=== PATIENT | female | born 1985 | race Caucasian/White ===

== ENCOUNTER 2019-10-09 09:42 | Inpatient (IN) ==
[2019-10-09] MEDS ORDERED: Famotidine 20 MG/2 ML VIAL IVP PRN (09:57)
[2019-10-09] MEDS ORDERED: Metoclopramide 10 MG/2 ML VIAL IVP PRN (09:57)
[2019-10-09] MEDS ORDERED: *HR* FentaNYL (PF) 100 MCG/2 ML VIAL IVP PRN (09:57)
[2019-10-09] MEDS ORDERED: Ondansetron 4 MG/2 ML VIAL IVP PRN (09:57)
[2019-10-09] MEDS ORDERED: Naloxone 0.4 MG/ML INJ IVP PRN (09:57)
[2019-10-09] MEDS ORDERED: Lidocaine 1% 20 ML MDV INFILT PRN (09:57)
[2019-10-09] MEDS ORDERED: Azithromycin 500 MG in 0.9 % Sodium Chloride 250 ML IVPB ONE (09:57)
[2019-10-09] MEDS ORDERED: Oxytocin 20 units/ LR 1000 mL 20 UNIT/1,000 ML BAG IVC SCH ×2 (10:00→18:07)
[2019-10-09] MEDS: Ringers Solution, Lactated 1,000 ML IVC SCH ×2 (11:04→14:56)
[2019-10-09 11:22] LABS: Basophils % 0.2 %; Eosinophils # 0.1 K/mcL (0.0-0.6); Eosinophils % 0.9 %; Hematocrit 38.8 % (35.3-44.9); Immature Granulocytes % 0.3 % (0-4); Lymphocytes # 2.1 K/mcL (0.6-4.6); Lymphocytes % 23.6 %; Mean Corpuscular HGB Conc 33.5 g/dL (31.6-35.5); Mean Corpuscular Hemoglobin 31.2 pg (28.0-33.3); Mean Platelet Volume 10.7 fL (9.4-12.4); Monocytes # 0.7 K/mcL (0.0-1.3); Monocytes % 7.8 %; Neutrophils # 5.9 K/mcL (1.6-8.9); Platelet Count 203 K/mcL (140-400); Red Blood Count 4.17 M/mcL (3.82-4.97); Red Cell Distribution Width 13.5 % (11.5-14.5); Segmented Neutrophils % 67.2 %; White Blood Count 8.9 K/mcL (4.3-11.1)
[2019-10-09 11:33] LABS: Amphetamine Screen,Urine Negative ng/mL (Cutoff=1000); Barbiturate Screen,Urine Negative ng/mL (Cutoff=200); Benzodiazepines Screen,Urine Negative ng/mL (Cutoff=200); Cannabinoid Screen,Urine Negative ng/mL (Cutoff = 50); Cocaine Screen,Urine Negative ng/mL (Cutoff= 300); Opiate Screen,Urine Negative ng/mL (Cutoff=300); Phencyclidine Screen,Urine Negative ng/mL (Cutoff=25)
[2019-10-09] MEDS ORDERED: EPHEDrine 50 MG/ML VIAL IVP PRN (13:00)
[2019-10-09] MEDS ORDERED: Epidural Premix (fent/bupiv) 110 ML EP SCH (13:00)
[2019-10-09] MEDS ORDERED: Ropivacaine/PF 0.2% 20 ML VIAL EP ONE (13:00)
[2019-10-09] MEDS ORDERED: *HR* FentaNYL (PF) 100 MCG/2 ML VIAL EP ONE (13:00)
[2019-10-09] MEDS ORDERED: Ropivacaine/PF 0.2% 20 ML VIAL ONE (13:07)
[2019-10-09] MEDS ORDERED: *HR* FentaNYL (PF) 100 MCG/2 ML VIAL ONE (13:07)
[2019-10-09] MEDS ORDERED: Silver Nitrate Applicator 1 STICK..EA. TP ONE (16:31)
[2019-10-09] MEDS ORDERED: Ibuprofen 600 MG TABLET PO PRN (18:07)
[2019-10-09] MEDS ORDERED: Rho Immune Globulin 1,500 UNIT SYRINGE IM PRN (18:07)
[2019-10-09] MEDS ORDERED: Measles/Mumps/Rubella Vacc 0.5 ML VIAL SQ PRN (18:07)
[2019-10-09] MEDS ORDERED: Ringers Solution, Lactated 1,000 ML ONE (20:43)
[2019-10-10] MEDS: Acetaminophen 325 MG TABLET PO PRN ×2 (02:19→14:08)
[2019-10-10 07:37] LABS: Basophils % 0.3 %; Eosinophils # 0.1 K/mcL (0.0-0.6); Eosinophils % 1.1 %; Hematocrit 36.2 % (35.3-44.9); Hemoglobin 11.9 g/dL (11.5-15.4); Immature Granulocytes % 0.5 % (0-4); Lymphocytes # 2.5 K/mcL (0.6-4.6); Lymphocytes % 24.4 %; Mean Corpuscular HGB Conc 32.9 g/dL (31.6-35.5); Mean Corpuscular Hemoglobin 30.8 pg (28.0-33.3); Mean Corpuscular Volume 93.8 fL (83.0-100.0); Mean Platelet Volume 10.7 fL (9.4-12.4); Monocytes # 0.8 K/mcL (0.0-1.3); Neutrophils # 6.7 K/mcL (1.6-8.9); Platelet Count 181 K/mcL (140-400); Red Blood Count 3.86 M/mcL (3.82-4.97); Red Cell Distribution Width 13.3 % (11.5-14.5); Segmented Neutrophils % 65.7 %; White Blood Count 10.2 K/mcL (4.3-11.1)
[2019-10-10] MEDS ORDERED: Prenatal Vit/FA 1 EACH TABLET PO SCH ×2 (09:00)
[2019-10-10 15:37] VITALS: BP 110/68
== END 2019-10-10 18:10 | disposition home or self-care (01) | DRG 560 ==
LOC: 1NENULAB 09:42 → 1NENUOBS 18:35
PROVIDERS: ADMIT Student in an Organized Health Care Education/Training Program; ATTEND Student in an Organized Health Care Education/Training Program